=== PATIENT | male | born 1965 | race Caucasian/White ===

== ENCOUNTER 2017-03-11 14:27 | Emergency (ER) | payer SELFPAY ==
[2017-03-11 17:20] VITALS: BP 197/108
== END 2017-03-11 17:35 | disposition home or self-care (01) ==
LOC: ED 14:27
DX: S01.81XA Laceration without foreign body of other part of head, initial encounter (principal); F10.20 Alcohol dependence, uncomplicated; W18.30XA Fall on same level, unspecified, initial encounter; Y93.89 Activity, other specified; Y99.8 Other external cause status; Y92.89 Other specified places as the place of occurrence of the external cause
CPT/HCPCS: 90715; J3490

== ENCOUNTER 2017-03-21 12:02 | Emergency (ER) | payer SELFPAY ==
[2017-03-21 12:08] VITALS: BP 192/108
== END 2017-03-21 12:36 | disposition home or self-care (01) ==
LOC: ED 12:02
DX: S01.81XD Laceration without foreign body of other part of head, subsequent encounter (principal); R03.0 Elevated blood-pressure reading, without diagnosis of hypertension; F10.20 Alcohol dependence, uncomplicated; X58.XXXD Exposure to other specified factors, subsequent encounter